=== PATIENT | female | born 1995 | race Caucasian/White ===

== ENCOUNTER 2017-04-19 08:21 | Day surgery (SDC) | payer OTHER ==
[2017-04-19] MEDS ORDERED: PROPOFOL 40 ML (10:02)
== END 2017-04-19 11:45 | disposition home or self-care (01) ==
LOC: GIL 08:21
DX: R19.4 Change in bowel habit (principal); K64.8 Other hemorrhoids; E66.01 Morbid (severe) obesity due to excess calories; Z68.43 Body mass index [BMI] 50.0-59.9, adult
CPT/HCPCS: 45378; 84703